=== PATIENT | male | born 1990 | race Two or more races ===

== ENCOUNTER 2023-10-11 16:10 | Emergency (ER) | payer OTHER ==
[~2023-10-11] VITALS: Ht 170.2 cm; Wt 79.4 kg
[2023-10-11] MEDS ORDERED: KETOROLAC TROMETHAMINE 60 MG VIAL IM ONE ×2 (16:45→16:50)
[2023-10-11 17:01] LABS: HEMATOCRIT 42.2 % (39.0-48.0); HEMOGLOBIN 14.4 g/dL (13-16.00); MEAN CELL VOLUME 77.3 fL (80.0-100.00); MEAN CORPUSCULAR HEMOGLOBIN 26.4 pg (27.00-32.0); MEAN CORPUSCULAR HGB CONC 34.1 g/dl (32.0-36.0); PLATELET COUNT 260 K/uL (150-450); RED BLOOD COUNT 5.46 M/uL (4.00-6.00); RED CELL DISTRIBUTION WIDTH 14.4 % (11.5-14.5)
[2023-10-11 17:45] LABS: ALBUMIN 4.5 gm/dL (3.4-5.0); BILIRUBIN TOTAL 0.3 mg/dL (0.3-1.2); CALCIUM 9.5 mg/dL (8.5-10.1); CREATININE SERUM 0.83 mg/dL (0.70-1.30); GFR 106.7; GLOBULINA 3.3 G/DL (2.4-3.5); POTASSIUM 4.76 mEq/L (3.5-5.1); TOTAL PROTEIN 7.8 gm/dL (6.4-8.2); TSH 1.23 uIU/mL (0.358-3.74)
[2023-10-11] MEDS ORDERED: DICLOFENAC SODI75 MG PO (18:15)
== END 2023-10-11 18:28 | disposition home or self-care (01) ==
LOC: ER 16:11
PROVIDERS: General Practice
DX: M94.0 Chondrocostal junction syndrome [Tietze] (principal); R07.89 Other chest pain

== ENCOUNTER 2024-02-26 07:52 | Emergency (ER) | payer OTHER ==
[~2024-02-26] VITALS: Ht 170.2 cm; Wt 79.4 kg
[~2024-02-26 07:52] MED LIST: DICLOFENAC SODI75 MG PO
[2024-02-26 08:25] VITALS: BP 150/85; O2SAT 99
== END 2024-02-26 10:11 | disposition home or self-care (01) ==
LOC: ER 07:54
DX: M54.89 Other dorsalgia (principal); M25.512 Pain in left shoulder